=== PATIENT | female | born 1955 | race Caucasian/White ===

== ENCOUNTER 2017-11-21 09:31 | Emergency (ER) | payer OTHER ==
[~2017-11-21] VITALS: Ht 163.8 cm; Wt 91.9 kg
[2017-11-21] MEDS ORDERED: SODIUM CHLORIDE 0.9% 1,000 ML IV ONE (10:14)
[2017-11-21] MEDS ORDERED: AMLO10TA2 PO (10:23)
[2017-11-21] MEDS ORDERED: LISI2.5T PO (10:24)
[2017-11-21] MEDS ORDERED: METF500T4 PO (10:24)
[2017-11-21] MEDS ORDERED: ATOR-2 PO (10:24)
[2017-11-21] MEDS ORDERED: CALC-112 PO (10:25)
[2017-11-21] MEDS ORDERED: ASPI-650 PO (10:25)
[2017-11-21] MEDS ORDERED: GLIM1TAB2 PO (10:25)
[2017-11-21] MEDS ORDERED: OMEP10CA4 PO (10:26)
[2017-11-21] MEDS ORDERED: OMEG-76 PO (10:26)
[2017-11-21] MEDS ORDERED: SODIUM CHLORIDE 0.9% 1,000ML IVBOLUS ONE (10:30)
[2017-11-21 10:37] LABS: MICROSCOPIC NOT IND
[2017-11-21 10:46] LABS: CULTURE INDICATED? NO
[2017-11-21 10:53] LABS: BASOPHILS # (AUTO) 0.02 x10^3/uL (0-0.1); BASOPHILS % (AUTO) 0 % (0-1); EOSINOPHILS # (AUTO) 0.13 x10^3/uL (0-0.4); EOSINOPHILS % (AUTO) 2 % (1-7); LYMPHOCYTES # (AUTO) 3.99 x10^3/uL (1-3.4); LYMPHOCYTES % (AUTO) 46 % (22-44); MD NO; MEAN CORPUSCULAR HEMOGLOBIN 28.2 pg (27.0-34.8); MEAN CORPUSCULAR VOLUME 85.4 fL (80-100); MEAN PLATELET VOLUME 8.3 fL (7.4-10.4); MONOCYTES # (AUTO) 0.48 x10^3/uL (0.2-0.8); MONOCYTES % (AUTO) 5 % (2-9); NEUTROPHILS # (AUTO) 4.15 x10^3/uL (1.8-6.8); NEUTROPHILS % (AUTO) 47 % (42-75); PLATELET COUNT 322 x10^3/uL (130-400); RED BLOOD COUNT 4.84 x10^6/uL (3.82-5.3); RED CELL DISTRIBUTION WIDTH 13.8 % (9.6-15.2)
[2017-11-21 11:09] LABS: TROPONIN I < 0.015 ng/mL (0.000-0.045)
[2017-11-21 11:16] LABS: ALANINE AMINOTRANSFERASE 53 U/L (12-78); ALBUMIN 3.3 g/dL (3.4-5.0); ANION GAP 9 mmol/L (5-15); CALCIUM 8.7 mg/dL (8.5-10.1); CHLORIDE 107 mmol/L (98-107); CREATININE 0.98 mg/dL (0.55-1.02)
[2017-11-21 11:18] LABS: ALKALINE PHOSPHATASE 54 U/L (45-117); BILIRUBIN,TOTAL 0.3 mg/dL (0.2-1.0); TOTAL PROTEIN 6.8 g/dL (6.4-8.2)
[2017-11-21] MEDS ORDERED: OMNIPAQUE 350 MG/ML, 100ML BOTTLE ONE (11:37)
[2017-11-21 12:09] VITALS: BP 153/72
== END 2017-11-21 13:14 | disposition home or self-care (01) ==
LOC: ED 10:51
DX: R10.12 Left upper quadrant pain (principal); I10 Essential (primary) hypertension; E11.9 Type 2 diabetes mellitus without complications; E78.5 Hyperlipidemia, unspecified
CPT/HCPCS: 36415; 71045; 74177; 80053; 81003; 83690; 84484; 85025; 93005; 96360; 96361; 99285; J7030; Q9967

== ENCOUNTER 2018-04-23 16:53 | Inpatient (IN) | payer OTHER ==
[~2018-04-23] VITALS: Ht 162.6 cm; Wt 93.5 kg
[~2018-04-23 16:53] MED LIST: AMLO10TA2 PO; ASPI-650 PO; ATOR-2 PO; CALC-112 PO; GLIM1TAB2 PO; LISI2.5T PO; METF500T5 PO; OMEG-76 PO; OMEP10CA4 PO
[2018-04-23] MEDS ORDERED: ASPIRIN 81 MG TABLET CHEW PO ONE (17:30)
[2018-04-23 17:56] LABS: MEAN CORPUSCULAR HEMOGLOBIN 28.7 pg (27.0-34.8); MEAN CORPUSCULAR VOLUME 86.8 fL (80-100); MEAN PLATELET VOLUME 8.4 fL (7.4-10.4); PLATELET COUNT 312 x10^3/uL (130-400); RED BLOOD COUNT 4.91 x10^6/uL (3.82-5.3); RED CELL DISTRIBUTION WIDTH 13.8 % (9.6-15.2)
[2018-04-23 18:04] LABS: ALANINE AMINOTRANSFERASE 55 U/L (12-78); ALBUMIN 3.8 g/dL (3.4-5.0); ANION GAP 9 mmol/L (5-15); CALCIUM 9.3 mg/dL (8.5-10.1); CHLORIDE 107 mmol/L (98-107); CREATININE 1.96 mg/dL (0.55-1.02)
[2018-04-23 18:08] LABS: ALKALINE PHOSPHATASE 62 U/L (45-117); BILIRUBIN,TOTAL 0.3 mg/dL (0.2-1.0); TOTAL PROTEIN 7.2 g/dL (6.4-8.2); TROPONIN I < 0.015 ng/mL (0.000-0.045)
[2018-04-23 18:23] LABS: MD MORPH REVIEW ONLY
[2018-04-23 18:25] LABS: <RBC MORPHOLOGY> NORMAL
[2018-04-23 18:26] LABS: <PLATELET ESTIMATE> ADEQUATE; LARGE PLATELETS 1+; SMUDGE CELLS 1+
[2018-04-23 18:37] LABS: BASOPHILS # (AUTO) 0.02 x10^3/uL (0-0.1); BASOPHILS % (AUTO) 0 % (0-1); EOSINOPHILS # (AUTO) 0.09 x10^3/uL (0-0.4); EOSINOPHILS % (AUTO) 1 % (1-7); LYMPHOCYTES # (AUTO) 5.14 x10^3/uL (1-3.4); LYMPHOCYTES % (AUTO) 46 % (22-44); MONOCYTES # (AUTO) 0.64 x10^3/uL (0.2-0.8); MONOCYTES % (AUTO) 6 % (2-9); NEUTROPHILS # (AUTO) 5.17 x10^3/uL (1.8-6.8); NEUTROPHILS % (AUTO) 47 % (42-75)
[2018-04-23] MEDS ORDERED: SODIUM CHLORIDE 0.9% 1,000ML IVBOLUS ONE (19:00)
[2018-04-23] MEDS ORDERED: SODIUM CHLORIDE FLUSH 10ML SYR IVF ONE (19:00)
[2018-04-23] MEDS ORDERED: ASPIRIN 81 MG TABLET CHEW ONE (19:19)
[2018-04-23] MEDS ORDERED: ATOR-2 PO (21:29)
[2018-04-23] MEDS ORDERED: AMLO10TA2 PO (21:32)
[2018-04-23] MEDS ORDERED: LISI-420 PO (21:34)
[2018-04-23] MEDS ORDERED: ASPI-496 PO (21:35)
[2018-04-23] MEDS ORDERED: OMEP20CA14 PO (21:37)
[2018-04-23] MEDS ORDERED: METF10003 PO (21:38)
[2018-04-23] MEDS ORDERED: GLIM2TAB2 PO (21:40)
[2018-04-23 21:41] VITALS: BP 156/74
[2018-04-23] MEDS: INSULIN LISPRO 100 UNITS/ML, PEN SQ-INSULIN SCH (22:20)
[2018-04-23] MEDS ORDERED: ACETAMINOPHEN 325 MG TABLET PO PRN (22:30)
[2018-04-23] MEDS ORDERED: BISACODYL 10 MG SUPP PR PRN (22:30)
[2018-04-23] MEDS ORDERED: OXYcodone IR 5MG TABLET PO PRN (22:30)
[2018-04-23] MEDS ORDERED: hydrALAzine 20 MG/ML, 1ML IVPush PRN (22:30)
[2018-04-23] MEDS ORDERED: ONDANSETRON ODT 4 MG PO PRN (22:30)
[2018-04-23] MEDS ORDERED: PROMETHAZINE 25 MG/ML, 1ML IM PRN (22:30)
[2018-04-23] MEDS ORDERED: NITROGLYCERIN 0.4 MG BOTTLE (25 TABS) SL PRN (22:30)
[2018-04-23] MEDS ORDERED: DOCUSATE 100 MG CAPSULE PO PRN (22:30)
[2018-04-23] MEDS ORDERED: morphine SULFATE 10 MG/ML, 1ML IVPush PRN (22:30)
[2018-04-23] MEDS ORDERED: ONDANSETRON 2MG/ML, 2ML IVPush PRN (22:30)
[2018-04-23] MEDS ORDERED: POLYETHYLENE GLYCOL 17 GM PACKET PO PRN (22:30)
[2018-04-23] MEDS: AMLODIPINE 5 MG TABLET PO SCH (22:46)
[2018-04-23] MEDS: DOXYCYCLINE 100MG TABLET PO SCH (22:46)
[2018-04-23] MEDS: ATORVASTATIN 40 MG TABLET PO SCH (22:46)
[2018-04-23] MEDS: HEPARIN 5,000 UNITS/ML, 1ML SQ SCH (22:46)
[2018-04-23 22:49] LABS: FREE T4 (FREE THYROXINE) 1.06 ng/dL (0.76-1.46); THYROID STIMULATING HORMONE 1.77 mIU/L (0.358-3.740)
[2018-04-23] MEDS: SODIUM CHLORIDE 0.9% 1,000 ML IV SCH (22:49)
[2018-04-23 22:53] LABS: HEMOGLOBIN A1C 7.9 % (4.2-6.3)
[2018-04-23 23:22] LABS: TROPONIN I < 0.015 ng/mL (0.000-0.045)
[2018-04-24 00:45] LABS: MICROSCOPIC NOT IND
[2018-04-24 00:48] LABS: CULTURE INDICATED? NO
[2018-04-24 01:29] VITALS: BP 121/77
[2018-04-24] MEDS: HEPARIN 5,000 UNITS/ML, 1ML SQ SCH ×3 (05:42→23:36)
[2018-04-24] MEDS: ASPIRIN 325 MG TABLET EC PO SCH (05:42)
[2018-04-24 05:43] LABS: MEAN CORPUSCULAR HEMOGLOBIN 28.3 pg (27.0-34.8); MEAN CORPUSCULAR HGB CONC 32.9 g/dL (32.4-35.8); MEAN CORPUSCULAR VOLUME 85.8 fL (80-100); MEAN PLATELET VOLUME 8.1 fL (7.4-10.4); PLATELET COUNT 230 x10^3/uL (130-400); RED BLOOD COUNT 4.27 x10^6/uL (3.82-5.3); RED CELL DISTRIBUTION WIDTH 13.9 % (9.6-15.2)
[2018-04-24 05:52] LABS: ANION GAP 7 mmol/L (5-15); CALCIUM 8.3 mg/dL (8.5-10.1); CHLORIDE 112 mmol/L (98-107)
[2018-04-24 05:59] LABS: ALANINE AMINOTRANSFERASE 45 U/L (12-78); ALKALINE PHOSPHATASE 51 U/L (45-117); BILIRUBIN,TOTAL 0.5 mg/dL (0.2-1.0); CHOLESTEROL, TOTAL 146 mg/dL (140-239); CREATININE 1.06 mg/dL (0.55-1.02); HDL CHOL % 20 % (28-40); HDL CHOLESTEROL (DIRECT) 29 mg/dL (40-60); LDL CHOLESTEROL,CALCULATED 50 mg/dL (54-169); LDL/HDL RATIO 1.7 (0.5-3.0); TRIGLYCERIDES 335 mg/dL (50-200); TROPONIN I < 0.015 ng/mL (0.000-0.045); VLDL CHOLESTEROL 67 mg/dL (0-25)
[2018-04-24 06:24] LABS: BASOPHILS # (AUTO) 0.04 x10^3/uL (0-0.1); BASOPHILS % (AUTO) 1 % (0-1); EOSINOPHILS # (AUTO) 0.12 x10^3/uL (0-0.4); EOSINOPHILS % (AUTO) 2 % (1-7); LYMPHOCYTES # (AUTO) 4.09 x10^3/uL (1-3.4); LYMPHOCYTES % (AUTO) 59 % (22-44); MD SCAN; MONOCYTES # (AUTO) 0.39 x10^3/uL (0.2-0.8); MONOCYTES % (AUTO) 6 % (2-9); NEUTROPHILS # (AUTO) 2.24 x10^3/uL (1.8-6.8); NEUTROPHILS % (AUTO) 33 % (42-75)
[2018-04-24] MEDS: INSULIN LISPRO 100 UNITS/ML, PEN SQ-INSULIN SCH ×4 (07:00→21:32)
[2018-04-24 07:51] VITALS: BP 129/81
[2018-04-24] MEDS: DOXYCYCLINE 100MG TABLET PO SCH ×2 (08:06→21:31)
[2018-04-24] MEDS: OMEGA-3/FISH OIL CAPSULE PO SCH (08:06)
[2018-04-24] MEDS: OMEPRAZOLE 20 MG CAPSULE.DR PO SCH (08:06)
[2018-04-24] MEDS: SODIUM CHLORIDE 0.9% 1,000 ML IV SCH (08:06)
[2018-04-24] MEDS ORDERED: LISINOPRIL 20 MG PO SCH (09:00)
[2018-04-24] MEDS ORDERED: MAGNESIUM SULFATE PMX 2GM/50ML 50 ML IV ONE (10:30)
[2018-04-24] MEDS: MAGNESIUM CHLORIDE 64 MG TABLET.DR PO SCH ×2 (11:07→21:32)
[2018-04-24] MEDS ORDERED: CALCIUM/VITAMIN D3 250-125 TABLET PO SCH (12:00)
[2018-04-24 13:08] VITALS: BP 151/84
[2018-04-24] MEDS: LOSARTAN 25MG TABLET PO SCH ×2 (14:59→21:32)
[2018-04-24 19:28] VITALS: BP 150/84
[2018-04-24] MEDS: AMLODIPINE 5 MG TABLET PO SCH (21:31)
[2018-04-24] MEDS: ATORVASTATIN 40 MG TABLET PO SCH (21:32)
[2018-04-25 00:57] VITALS: BP 124/79
[2018-04-25] MEDS: ASPIRIN 325 MG TABLET EC PO SCH (06:14)
[2018-04-25] MEDS: INSULIN LISPRO 100 UNITS/ML, PEN SQ-INSULIN SCH ×2 (07:00→11:00)
[2018-04-25 07:20] VITALS: BP 156/87
[2018-04-25] MEDS: MAGNESIUM CHLORIDE 64 MG TABLET.DR PO SCH (07:53)
[2018-04-25] MEDS: OMEGA-3/FISH OIL CAPSULE PO SCH (07:53)
[2018-04-25] MEDS: DOXYCYCLINE 100MG TABLET PO SCH (07:53)
[2018-04-25] MEDS: LOSARTAN 25MG TABLET PO SCH (07:54)
[2018-04-25] MEDS: HEPARIN 5,000 UNITS/ML, 1ML SQ SCH (07:54)
[2018-04-25] MEDS: OMEPRAZOLE 20 MG CAPSULE.DR PO SCH (07:54)
[2018-04-25] MEDS ORDERED: LOSARTAN 50MG TABLET PO SCH (09:30)
[2018-04-25 10:03] LABS: ANION GAP 6 mmol/L (5-15); CALCIUM 8.8 mg/dL (8.5-10.1); CHLORIDE 109 mmol/L (98-107); CREATININE 0.96 mg/dL (0.55-1.02)
[2018-04-25] MEDS ORDERED: MAGN64TA7 PO (10:23)
[2018-04-25] MEDS ORDERED: LOSA50TA2 PO (10:23)
[2018-04-25] MEDS ORDERED: DOXY100T PO (10:23)
[2018-04-25] MEDS ORDERED: PNEUMOCOCCAL 23 VACCINE IM-VACC ONE (11:30)
== END 2018-04-25 12:35 | disposition home or self-care (01) | DRG 202 ==
LOC: ED 20:34 → EDIP 20:35 → 5SO 21:19 → DCLOUNGE 04-25 12:18
PROVIDERS: ADMIT Internal Medicine; ATTEND Internal Medicine
DX: J40 Bronchitis, not specified as acute or chronic (principal); N17.0 Acute kidney failure with tubular necrosis; D72.829 Elevated white blood cell count, unspecified; E11.9 Type 2 diabetes mellitus without complications; E78.5 Hyperlipidemia, unspecified; I10 Essential (primary) hypertension; K21.9 Gastro-esophageal reflux disease without esophagitis; Z80.9 Family history of malignant neoplasm, unspecified; Z79.82 Long term (current) use of aspirin; Z82.3 Family history of stroke; Z87.891 Personal history of nicotine dependence; Z90.49 Acquired absence of other specified parts of digestive tract; Z88.2 Allergy status to sulfonamides; Z88.5 Allergy status to narcotic agent
CPT/HCPCS: 36415; 71045; 78452; 80048; 80053; 80061; 81003; 82962; 83036; 83735; 83880; 84439; 84443; 84484; 85025; 90732; 93005; 93017; 99285; J1644; A9502; C9898; J1815; J3475; J7030